=== PATIENT | male | born 1995 | race Caucasian/White ===

== ENCOUNTER 2025-02-20 09:09 | Outpatient (CLI) | payer BC | END 2025-02-20 09:10 | disposition home or self-care (01) | LOC: ULT 09:09 | PROVIDERS: ATTEND Nurse Practitioner Family | DX: N50.812 Left testicular pain (principal); R93.89 Abnormal findings on diagnostic imaging of other specified body structures; I86.1 Scrotal varices | CPT/HCPCS: 76870; 93976 ==